=== PATIENT | male | born 1990 | race Two or more races ===

== ENCOUNTER → 2018-05-06 | Day surgery (SDC) | payer OTHER | END | disposition home or self-care (01) | LOC: ADM 04-29 13:30 → AMB-ENDOS 06:15 | DX: D12.8 Benign neoplasm of rectum (principal); K63.5 Polyp of colon; K64.8 Other hemorrhoids; Z12.11 Encounter for screening for malignant neoplasm of colon ==

== ENCOUNTER 2025-06-01 07:00 | Day surgery (SDC) | payer OTHER ==
[2025-06-01] MEDS ORDERED: FLUMAZENIL 0.5 MG/5 ML ML IV STA (08:33)
[2025-06-01] MEDS ORDERED: fentaNYL CITRATE 50 MCG/ML AMPUL IV PUSH ONE (08:45)
[2025-06-01] MEDS ORDERED: DIPHENHYDRAMINE HCL 50 MG/ML VIAL 1ML IV ONE (08:45)
[2025-06-01] MEDS ORDERED: ONDANSETRON HCL 2 MG/ML VIAL IV ONE (08:45)
[2025-06-01] MEDS ORDERED: MIDAZOLAM HCL 2 MG/2 ML VIAL IV ONE (08:45)
== END 2025-06-01 09:30 | disposition home or self-care (01) ==
LOC: AMB-ENDOS 07:00
PROVIDERS: ATTEND Colon & Rectal Surgery
DX: K63.5 Polyp of colon (principal); K62.1 Rectal polyp